=== PATIENT | male | born 1990 ===

== ENCOUNTER 2018-09-17 09:50 | Emergency (ER) | payer OTHER ==
--- NOTE | 2018-09-17 09:55 | ER Report ---
History and Physical Time Seen By MD: 09:55 HPI/ROS CHIEF COMPLAINT: Left ankle pain HISTORY OF PRESENT ILLNESS: Patient is a 27-year-old male here with complaints of left lateral ankle pain which is been ongoing for several weeks to months acutely worsening this morning prompting evaluation. Patient denies recent trauma to the ankle but does complain of swelling to the lateral malleolus. Patient is neurovascularly intact at time of evaluation with no obvious bony deformity. REVIEW OF SYSTEMS: Constitutional: No fever, no chills. Musculoskeletal: Left lateral ankle pain Skin: No rashes. Neurological: Neurovascular exam intact Allergies: Coded Allergies: No Known Drug Allergies (Unverified , 09/17/18) Constitutional Vital Sign - Last 24 Hours 09/17/18 09/17/18 09/17/18 09/17/18 09:56 09:58 10:20 10:50 Temp 98.2 Pulse 86 80 72 Resp 18 B/P (MAP) 148/94 (112) 148/94 Pulse Ox 95 96 95 Physical Exam General Appearance: The patient is alert, has no immediate need for airway protection and no signs of toxicity. No acute distress Neurological: No focal neurological deficits Skin: Warm and dry, no rashes. Musculoskeletal: Tenderness on palpation of the left lateral malleolus with mild edema without bony deformity DIFFERENTIAL DIAGNOSIS: After history and physical exam differential diagnosis was considered for contusion, sprain, gout, fracture Medical Decision Making EKG/Imaging Imaging PATIENT NAME: Holden Rubalcava : 1990 MR: [id number] V: [id number] EXAM DATE: ORDERING PHYSICIAN: LEA PONCE TECHNOLOGIST: Location: [facility] - [place] Patient: Holden Rubalcava : 1990 Visit/Account:[id number] Date of Sevice: 09/17/2018 ANKLE 3 VIEW MIN LEFT Indication: Pain Comparison: None Available Findings: No evidence of fracture, dislocation, or acute osseous abnormality of the left ankle. The ankle mortise is symmetric. There is no significant ankle joint effusion. Small bone island is noted within the distal tibia. No evidence of radiopaque foreign body. IMPRESSION: 1. No acute osseous abnormality of the left ankle ED Course/Re-evaluation ED Course Patient is a 27-year-old male here with complaints of left lateral malleolus ankle pain. X-ray imaging showed no acute fractures, dislocations. Recommended conservative management. PCP follow-up recommended, orthopedics as necessary. Return precautions provided. Decision to Disposition Date: Sep 17, 2018 Decision to Disposition Time: 11:10 Depart Departure Latest Vital Signs Vital Signs Date Time Temp Pulse Resp B/P (MAP) Pulse Ox O2 Delivery O2 Flow Rate FiO2 09/17/18 10:50 72 95 09/17/18 09:58 98.2 18 148/94 Impression: Primary Impression: Ankle pain Condition: Improved Disposition: HOME OR SELF-CARE Patient Instructions: Musculoskeletal Pain (ED) Additional Instructions: No acute fractures were identified on x-ray imaging. Please follow-up with orthopedics if your symptoms persist. Please return promptly if you develop increasing pain, rash, drainage, fevers, numbness. LEA PONCE DO Sep 17, 2018 09:55
[2018-09-17 09:58] VITALS: BP 148/94
[2018-09-17] MEDS ORDERED: KETOROLAC 60 MG/2 ML VIAL IM ONE (10:00)
--- NOTE | 2018-09-17 10:40 | RADIOLOGY IMAGING REPORT ---
FACILITY: [facility] PATIENT NAME: Holden Rubalcava : 1990 MR: [id number] V: [id number] EXAM DATE: ORDERING PHYSICIAN: LEA PONCE TECHNOLOGIST: Location: [facility] - [place] Patient: Holden Rubalcava : 1990 Visit/Account:[id number] Date of Sevice: 09/17/2018 ANKLE 3 VIEW MIN LEFT Indication: Pain Comparison: None Available Findings: No evidence of fracture, dislocation, or acute osseous abnormality of the left ankle. The ankle mortise is symmetric. There is no significant ankle joint effusion. Small bone island is noted within the distal tibia. No evidence of radiopaque foreign body. IMPRESSION: 1. No acute osseous abnormality of the left ankle Report Dictated By: Vimal Villeda at 09/17/2018 10:35 AM Report E-Signed By: Vimal Villeda at 09/17/2018 10:36 AM [id number]
== END 2018-09-17 11:20 | disposition home or self-care (01) ==
LOC: ER 10:07
DX: M25.572 Pain in left ankle and joints of left foot (principal)
CPT/HCPCS: 99283